=== PATIENT | male | born 1970 | race Caucasian/White ===

== ENCOUNTER 2016-02-09 23:04 | Emergency (ER) | payer BC ==
--- NOTE | 2016-02-09 23:29 | ERNOTE ---
Back Pain ER HPI Date of Service: 02/09/16 - VIA EMS TO E 4 Presenting Symptoms: other - PATIENT IS COMPLAINING OF Left sided pleuritic chest pain, not really back pain Time Seen by Provider: 02/09/16 23:28 Source: patient, family Exam Limitations: no limitations Immunizations: IMMUNIZATION HX Immunizations Up to Date Yes History of Influenza Vaccine No Hx Pneumococcal Vaccination No Allergies/Adverse Reactions: Allergies Sulfa (Sulfonamide Antibiotics) [Sulfa(Sulfonamide Antibiotics)] Allergy ( Verified 01/26/16 16:03) Home Medications: HOME MEDICATIONS Amox Tr/Potassium Clavulanate [Augmentin 875-125 Tablet] 875 mg PO Q12H #20 tab 02/10/16 [Last Taken Unknown] Azithromycin [Zithromax] 250 mg PO DAILY #4 tablet MDD daily 02/10/16 [Last Taken Unknown] Guaifenesin/Pseudoephedrne HCl [Mucinex D ER 1,200-120 mg Tab] 1 tab PO Q12H PRN #24 tab 02/10/16 [Last Taken Unknown] - Pain Score Pain Score #1 Pain Score: 8 - with inspiration Date (Duration): 02/09/16 Time (Timing): 08:00 Timing: Reports: getting worse - pain definitely worsened Quality/Severity: Reports: severe, sharpness Location of pain: Reports: upper back, other - associated with deep breathing Activities at Onset: Reports: none - awoke ill, 2 weeks ago diagnosed with uri , had chest xry no antibiotics ordered Recent Injury?: Reports: no Possible Precipitating Factor: Reports: none. Denies: turning/bending, fall/ near fall, trauma Modifying Factors - (Worsens): Reports: cough/deep breaths Associated Symptoms: Reports: fever/chills, sweating, nausea/vomiting. Denies: numbess/weakness in legs Prior Treament: Reports: similar symptoms before, other - supportive therapies . Denies: currently on antibiotics Review of Systems - Review of Systems Constitutional: Present: recent illness, fever, chills, weakness, fatigue, malaise EYE: Present: no symptoms reported ENT: Present: no symptoms reported Respiratory: Present: shortness of breath, cough, other - pleuritic pain with inspiration Gastrointestinal/Abdominal: Present: nausea, eating less, drinking less. Absent : vomiting, diarrhea, constipation Genitourinary: Present: no symptoms reported Musculoskeletal: Present: other - left sided upper thoracic pain with deep inspiration Skin: Present: dryness Neurological: Present: no symptoms reported Endocrine: Present: no symptoms reported Hematologic/Lymphatic: Present: no symptoms reported Psych: Present: no symptoms reported All Other Systems: All systems neg except as marked - Narrative Narrative: all Past, social and family history reviewed, Immunizations no Influenza vaccine this season - Patient's Past Medical History Patient History - Medical: No pertinent hx Patient History - Cancer: No Hx of Cancer Patient History - Surgical Procedures: No surgical history Patient History - Other: None Additional Info: chronic smoker 3.4 ppd x greater than 30 years. - Social History Does anyone smoke in the home?: Yes Smoking Status: Current every day smoker Patient requests Smoking Cessation Consult: No Initiate information on Smoking Cessation: No Alcohol Use: occasionally Drug Use: meth - Immunizations Immunizations Up to Date: No - no influenza this season, Hx Pneumococcal Vaccination: No History of Influenza Vaccine: No - patient is not a candidate for peumococcal vaccine too young Physical Exam - Physical Exam General Appearance: Present: wd/wn, alert, mild distress Eye Exam: Normal inspection: bilateral, PERRL: bilateral, EOMI: bilateral Ears, Nose, Throat: Present: pharyngeal erythema, pharyngeal swelling, dry mucous membranes Neck: Present: normal inspection Respiratory: Present: no accessory muscle use, decreased breath sounds, expiration (prolonged) Cardiovascular/Chest: Present: regular rate, rhythm Peripheral Pulses: N=norm/S=strong/W=weak/B=bound/A=absent: Carotid (R): Normal , Carotid (L): Normal, Radial (R): Normal, Radial (L): Normal, Femoral (R): Normal, Femoral (L): Normal Gastrointestinal/Abdominal: Present: normal bowel sounds, nontender, nondistended, soft, no organomegaly. Absent: tenderness Rectal Exam: Present: deferred Male Genitals Exam: Present: deferred Back Exam: Present: no CVA tenderness Extremity Exam: Present: normal inspection Neurological Exam: Present: alert, oriented Skin Exam: Present: normal color, warm/dry Lymphatic Exam: Present: no adenopathy ED Progress - Date and Time Seen: Date and Time: 02/10/16 01:02 Patient feeling better after duoneb inhalation treatment - Results and Orders Patient's Lab Results:: I have reviewed the patient's lab results. - Vital Signs Patient's Vital Signs:: I have reviewed the patient's vital signs. Vital Signs: Vital Signs 02/09/16 23:06 Temperature 36.8 C Respiratory 18 Rate Blood Pressure 124/85 O2 Sat by Pulse 100 Oximetry mild hypovolemia, getting fluid bolus and responding well, Tmax 99.9 - EKG EKG: other - sinus tachycardia, compared with prior ekg done 01/30 2010 which was completely nrmal rate of 78 EKG read: Reviewed by me - Progress/Reassessment Chief Complaint: Back Pain Progress:: Improved Progress Note-Subjective: 02/10/16 01:03 Patient has left sided pleuritic chest pain Plan - Plan Plan: Patient is drinking well, IV antibiotics infuse and oral zithromax given. Patient will follow up with his PCP rx for home will be provided. Departure Clinical Impression: Bacterial lobar pneumonia, Tobacco abuse disorder - Departure Disposition: Home self-care Condition: Good Instructions: Smoking Cessation, Tips for Success, [id number], Community- Acquired Pneumonia, Adult, [id number] Additional Instructions: Call Dr. Huertas for new patient appointment to ensure you have follow up I recommend strong attempt at smoking cessation or at least reduce to 5 to 10 per day. Referrals: Alexey Huertas DO [Staff Physician] - Prescriptions: Amox Tr/Potassium Clavulanate [Augmentin 875-125 Tablet] 875 mg PO Q12H #20 tab Azithromycin [Zithromax] 250 mg PO DAILY #4 tablet MDD daily Guaifenesin/Pseudoephedrne HCl [Mucinex D ER 1,200-120 mg Tab] 1 tab PO Q12H PRN #24 tab PRN Reason: Congestion
[2016-02-09] MEDS ORDERED: ALBUTEROL SULFATE/IPRATROPIUM 3 ML NEBU IH ONE (23:44)
[2016-02-10] MEDS ORDERED: KETOROLAC TROMETHAMINE 30 MG/ML VIAL IV ONE
[2016-02-10] MEDS ORDERED: KETOROLAC TROMETHAMINE 30 MG/ML VIAL ONE (00:02)
[2016-02-10] MEDS ORDERED: ALBUTEROL SULFATE/IPRATROPIUM 3 ML NEBU IH ONE (00:05)
[2016-02-10 00:26] LABS: Hematocrit 43.4 % (42.0-52.0); Hemoglobin 14.2 gm/dL (13.5-18.0); Mean Cell Volume 93.1 fl (78-100); Mean Corpuscular Hemoglobin 30.5 pg (27-31); Mean Corpuscular Hgb Conc 32.7 g/dl (32-36); Mean Platelet Volume 8.3 fl (6.0-9.5); Neutrophil # 22.5 K/mm3 (1.3-6.0); Neutrophil % 94.1 % (42-75.0); Platelet Count 425 K/mm3 (150-450); Red Blood Count 4.66 M/mm3 (4.7-6.0); Red Cell Distribution Width 12.2 % (11.5-14.0); White Blood Count 23.9 K/mm3 (4.0-10.5)
[2016-02-10] MEDS ORDERED: NORMAL SALINE 1,000 ML IV ONE (00:28)
[2016-02-10 00:32] LABS: Total Cells Counted 100
[2016-02-10 00:42] LABS: Atypical (Reactive) Lymph 1 % (0-2); Band 15 % (0-2.0); Lymphocyte 3 % (20-51); Neutrophil 81 % (42-75); Neutrophil # 19.4 K/mm3 (1.3-6.0)
[2016-02-10 00:43] LABS: Dohle Bodies 1+; Hypersegmented Polys 3+; Platelet Estimate Increased (NORMAL); Toxic Granulation 3+
[2016-02-10 00:51] LABS: ALT 32 U/L (19-67); AST 16 U/L (0-48); Albumin * 3.6 gm/dl (3.4-5.0); Alkaline Phosphatase * 101 U/L (50-170); Anion Gap 14.9 mmol/L (6.8-13.8); BNP * 26 pg/mL (5-140); BUN/Creatinine Ratio 13.5 (9.0-21.6); Bilirubin, Total 0.5 mg/dL (0.0-1.1); Blood Urea Nitrogen 17 mg/dL (6-23); Ca. Corrected For Albumin 9.3 mg/dL (8.4-10.2); Calcium * 9.3 mg/dL (7.9-10.9); Carbon Dioxide 28.4 mmol/L (24-32.6); Chloride 97 mmol/L (97-106); Glucose * 106 mg/dL (70-110); Potassium 4.3 mmol/L (3.4-4.6); Sodium 136 mmol/L (132-142); Total Protein 7.3 gm/dL (6.2-8.2); Troponin I Less than 0.017 ng/ml (0.00-0.10)
[2016-02-10] MEDS ORDERED: AZITHROMYCIN 250 MG TABLET PO ONE (01:04)
[2016-02-10] MEDS ORDERED: AZITHROMYCIN 250 MG TABLET ONE (01:25)
[2016-02-10 03:47] VITALS: BP 94/64
== END 2016-02-10 03:45 | disposition home or self-care (01) ==
LOC: ER 23:04
PROC: 4A033R1 Measurement of Arterial Saturation, Peripheral, Percutaneous Approach (ICD-10-PCS; principal; 2016-02-09)
DX: J15.9 Unspecified bacterial pneumonia (principal); F17.210 Nicotine dependence, cigarettes, uncomplicated

== ENCOUNTER 2016-03-29 13:11 | Emergency (ER) | payer SELFPAY ==
[2016-03-29] MEDS ORDERED: ORPHENADRINE CITRATE 30 MG/ML VIAL IM ONE (13:49)
[2016-03-29] MEDS ORDERED: oxyCODONE HCL/ACETAMINOPHEN 1 TAB TABLET PO ONE (13:49)
[2016-03-29] MEDS ORDERED: oxyCODONE HCL/ACETAMINOPHEN 1 TAB TABLET ONE (13:55)
[2016-03-29] MEDS ORDERED: ORPHENADRINE CITRATE 30 MG/ML VIAL ONE (13:55)
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
[2016-03-29 16:43] VITALS: BP 113/69
== END 2016-03-29 15:25 | disposition home or self-care (01) ==
LOC: ER 13:11
DX: S80.811A Abrasion, right lower leg, initial encounter (principal); M62.838 Other muscle spasm; M54.5 Low back pain; M25.512 Pain in left shoulder; V43.52XA Car driver injured in collision with other type car in traffic accident, initial encounter